=== PATIENT | male | born 1970 | race Two or more races ===

== ENCOUNTER 2025-01-05 17:06 | Inpatient (IN) | payer OTHER, MEDICAID, MEDICARE, SELFPAY ==
[2025-01-05 17:38] VITALS: BP 132/81; PULSE 130; RESP 18; TEMP 36.6; O2SAT 95
--- NOTE | 2025-01-05 17:47 | EKG_ITS ---
[facility] Test Date: 2025-01-05 Pat Name: BRANDON VERONICA Department: Room: - Gender: Male L Tacker: : 1970 Requested By: Brooklynn Ballard ([facility]) [place] Order Number: [id number] Reading MD: Brooklynn Ballard ([facility]) Joselito Measurements Intervals [place] Rate: 138 P: 48 MT: 133 QRS: 4 QRSD: 89 T: 58 QT: 290 QTc: 440 Interpretive Statements SINUS TACHYCARDIA ABNORMAL RHYTHM ECG Compared to ECG 08/26/2020 11:58:51 Sinus rhythm no longer present /store/S0/[id number].pdf
--- NOTE | 2025-01-05 17:48 | PD.EDRME ---
Rapid Medical Screening Exam RME Arrival date/time: 01/05/25 17:06 This is a 54-year-old male who presents emergency department with complaints of generalized abdominal pain, nausea vomiting I have greeted and performed a focused initial assessment of this patient. Initial appropriate labs ordered at this time. A comprehensive ED assessment and evaluation of the patient and analysis of all test and completion of medical decision making process will be conducted by additional ED provider. Chief Complaint: GI Bleed Time Seen by Provider: 01/05/25 17:31 Vital signs: Vital Signs Temperature 98 F 01/05/25 17:38 Pulse Rate 130 H 01/05/25 17:38 Respiratory Rate 18 01/05/25 17:38 Blood Pressure 132/81 H 01/05/25 17:38 Pulse Oximetry (%) 95 01/05/25 17:38 Oxygen Delivery Method Room Air 01/05/25 17:38
[2025-01-05 18:27] LABS: Basophils % (Auto) 0 % (0-2.5); Eosinophils % (Auto) 0 % (0-10); Hematocrit 44.2 % (41.0-53.0); Immature Granulocytes % (Auto) 1 % (0-0); Immature Granulocytes Auto 0.09 Thou/mm3 (0.00-0.00); Lymphocytes # (Auto) 1.8 Thou/mm3 (1.0-4.8); Lymphocytes % (Auto) 11 % (10-50); Mean Corpuscular HGB Conc 33.9 g/dl (31.0-37.0); Mean Corpuscular Hemoglobin 29.8 pg (25.0-35.0); Mean Corpuscular Volume 88 fL (80-100); Monocytes # (Auto) 1.5 Thou/mm3 (0.0-0.8); Monocytes % (Auto) 9 % (0-12); Neutrophils # (Auto) 13.5 Thou/mm3 (1.8-7.7); Neutrophils % (Auto) 80 % (37-80); Nucleated Red Blood Cell % 0 /100 WBC (0); Platelet Count 424 Thou/mm3 (140-440); RDW Standard Deviation 38.5 fL (35.1-43.9); Red Blood Count 5.03 Miln/mm3 (4.50-5.90); White Blood Count 16.9 Thou/mm3 (3.8-10.6)
[2025-01-05 18:45] LABS: Collection Type, Urine Clean Catch
[2025-01-05 18:53] LABS: INR 1.2 (0.9-1.3); Partial Thromboplastin Time 31.1 Seconds (22.0-36.0); Prothrombin Time 13.2 Seconds (9.0-12.2)
[2025-01-05 18:55] LABS: Alanine Aminotransferase 11 U/L (10-49); Albumin, Serum 4.8 gm/dL (3.5-5.0); Albumin/Globulin Ratio 1.4 (1.2-2.2); Alkaline Phosphatase 149 U/L (46-116); Anion Gap 16 (7-16); Aspartate Amino Transferase 18 U/L (0-34); BUN/Creatinine Ratio 31 Ratio (12-20); Bilirubin,Total 0.5 mg/dL (0.3-1.2); Blood Urea Nitrogen 22 mg/dL (9-23); Calcium 9.8 mg/dL (8.3-10.6); Calcium (Corrected) 9.8 mg/dL (8.5-10.1); Carbon Dioxide 25.5 mMol/L (20.0-31.0); Chloride 97 mMol/L (98-107); Creatinine (Component) 0.7 mg/dL (0.6-1.3); Globulin 3.4 gm/dL (2.3-3.5); Glucose 127 mg/dL (74-106); Lipase 27 U/L (12-53); Osmolality,Calculated 280 (275-295); Potassium 3.8 mMol/L (3.4-5.1); Sodium 138 mMol/L (136-145); Total Protein 8.2 gm/dL (5.7-8.2); Troponin I < 0.020 ng/mL (0.0-0.045); eGFR > 60 See Note
[2025-01-05 18:57] LABS: Bilirubin,Urine 1+ (Negative); Blood,Urine 2+ (Negative); Clarity,Urine Clear (Clear/Hazy); Color,Urine Yellow (Lt Yel-Yel); Glucose, Urine Negative (Negative); Hyaline Casts,Urine < 1 /hpf (0-1); Ketones,Urine 4+ (Negative); Leukocyte Esterase,Urine Negative (Negative); Nitrite,Urine Negative (Negative); Protein,Urine 2+ (Neg - Trace); RBC,Urine 13 /hpf (0-3); Squamous Epithelial Cell,Urine < 1 /hpf (0-5); WBC,Urine 4 /hpf (0-5)
[2025-01-05 20:01] VITALS: BP 125/90; PULSE 130; RESP 19; TEMP 36.6; O2SAT 97
--- NOTE | 2025-01-05 20:27 | XR_ITS ---
Examination: CT abdomen with intravenous contrast CT pelvis with intravenous contrast 2-D coronal reconstructions 2-D sagittal reconstructions Date and time of exam:January 05, 2025 2113 hrs. Indications: Generalized abdominal pain today. CTDI: vol (mGy) 8.25 DLP: (mGycm) 510 Technique: Multiple axial sections of the abdomen and pelvis have been obtained. 64 slice high-resolution scanner used. 3 mm axial sections have been obtained, post intravenous injection 60 cc [id number] 2-D sagittal, coronal reconstructions obtained. Low dose protocols were performed. One or more of the following dose reduction techniques were used; automated exposure control, adjustment of the mA and/or KV according to patient size, use of iterative reconstruction technique. Findings: No focal liver or splenic lesions Thickening of the mucosa in the gastric antrum, mild with edema in the duodenal bulb Spleen is not enlarged Absent gallbladder No pancreatic or adrenal mass 4 mm lower pole nonobstructing right renal calculus Normal appendix 4 mm fat-containing umbilical hernia Colonic diverticulosis no diverticulitis No prostatomegaly Contracted urinary bladder Transpedicular lumbar fusion L5-S1 Impression: Findings most consistent with antral gastritis and active peptic disease of the duodenal bulb Recommend upper GI series follow-up 4 mm lower pole nonobstructing right renal calculus
--- NOTE | 2025-01-05 20:29 | EDNOTE_ITS ---
ED GI Bleed E/[facility] General Chief complaint: GI Bleed Stated complaint: NAUSEA AND VOMITTING; COFFEE GRD EMESIS Time Seen by Provider: 01/05/25 17:31 Arrival date/time: 01/05/25 17:06 E / HPI E / [facility] Narrative: 54-year-old male patient came in for evaluation regarding vomiting. Patient has been vomiting since yesterday according to the family and patient was coffee ground in color. Also complaining of right lower quadrant abdominal pain described as dull ache severity moderate. Denies any fever denies any diarrhea denies any constipation denies any other complaints no medications taken prior to arrival. Patient is taking a lot of [place] and muscle relaxant for chronic back pain and spasm. History of cerebral palsy. Related Data Previous Rx's ?Medication ?Instructions ?Recorded hydrocodone 10 mg-acetaminophen 1 tab PO TID #10 tabs 10/23/18 325 mg tablet ([place]) lorazepam 1 mg tablet (Ativan) 1 mg PO BID PRN anxiety #10 tabs 07/28/22 lorazepam 1 mg tablet (Ativan) 1 mg PO BID PRN anxiety #4 tabs 11/30/22 Allergies Allergy/AdvReac Type Severity Reaction Status Date / Time morphine Allergy Verified 07/28/22 00:22 Review of Systems Review of Systems Narrative Review of Systems: Review of system reviewed and within normal limits except mentioned in HPI ED Exam Narrative Physical exam: VITAL SIGNS: Reviewed. GENERAL APPEARANCE: Alert and interactive, follows commands, no acute distress, HEAD AND FACE: Non-traumatic. ENT: PERRL, pink conjunctivitis, eyelid no trauma, Mucous membrane moist. NECK: Supple, nontender, no nuchal rigidity. CHEST: No tenderness, no crepitus, no paradoxical movement, no retractions. LUNGS: Clear, well ventilated, symmetric, no rales, no wheezing, no ronchi, no stridor, good breath sounds bilaterally. HEART: Regular rate, regular rhythm, no murmur, no gallops. ABDOMEN: Soft, positive bowel sounds, nondistended, no guarding, nontender, no rebound, no masses, RECTAL: Deferred. GENITAL: Deferred. NEUROLOGICAL: Gross motor function intact sensory function intact, Appropriate for age. MUSCULOSKELETAL: low back nontender, full range of motion. EXTREMITIES: Nontender, full range of motion. SKIN: Color pink, dry, no rash, no lacerations, no abrasions, no contusions. LYMPHATICS: Deferred. Course Quality Measures none Orders Category Date Time Status COVID-19 Screening Questionnaire NOW Care 01/05/25 22:[address] Screening NOW Care 01/05/25 20:27 Active Decision to Admit X1 Care 01/05/25 22:34 Active EKG (ED ONLY) *Do not use* NOW Care 01/05/25 17:47 Completed Insert IV NOW Care 01/05/25 17:47 Active NPO NOW Care 01/05/25 22:35 Active NPO STAT Care 01/05/25 17:47 Active Occult Blood,Stool (Nursing) NOW Care 01/05/25 17:47 Active Occult blood,Gastric (Nursing) NEEDED Care 01/05/25 22:31 Active Consult to Gastroenterology Stat Cons 01/05/25 22:32 Ordered Diet NPO (NOW) Diet 01/05/25 22:[address] abdomen pelvis w con Stat Exams 01/05/25 20:27 Completed EKG (ED Only) Stat Exams 01/05/25 17:47 Draft CBC Stat Lab 01/05/25 18:10 Completed Comprehensive Metabolic Panel Stat Lab 01/05/25 18:10 Completed Lipase Stat Lab 01/05/25 18:10 Completed Magnesium Stat Lab 01/05/25 18:10 Completed Partial Thromboplastin Time Stat Lab 01/05/25 18:10 Completed Prothrombin Time with INR Stat Lab 01/05/25 18:10 Completed Troponin I Stat Lab 01/05/25 18:10 Completed Type and Screen Stat Lab 01/05/25 18:10 Completed Urinalysis Stat Lab 01/05/25 18:34 Completed Ondansetron Inj [Zofran Inj] Med 01/05/25 20:27 Discontinued 4 mg IV X1 ONE Pantoprazole Inj [Protonix Inj] Med 01/05/25 20:27 Discontinued 80 mg IV X1 ONE Ringers Lactated 1000 ml [Lactated Ringers] 1,000 ml Med 01/05/25 20:29 Discontinued IV 999 mls/hr Vital Signs Vital signs: Vital Signs Temperature 98 F 01/05/25 17:38 Pulse Rate 130 H 01/05/25 17:38 Respiratory Rate 18 01/05/25 17:38 Blood Pressure 132/81 H 01/05/25 17:38 Pulse Oximetry (%) 95 01/05/25 17:38 Oxygen Delivery Method Room Air 01/05/25 17:38 GI Bleed [facility] Narrative [facility] Narrative:: 54-year-old male patient came in for evaluation regarding vomiting. Patient has been vomiting since yesterday according to the family and patient was coffee ground in color. Also complaining of right lower quadrant abdominal pain described as dull ache severity moderate. Denies any fever denies any diarrhea denies any constipation denies any other complaints no medications taken prior to arrival. Patient is taking a lot of [place] and muscle relaxant for chronic back pain and spasm. History of cerebral palsy. Patient's workup today all came back unremarkable hemoglobin is normal except for a WBC count of 16.9. Urinalysis no UTI. EKG showed sinus tachycardia, ventricular rate of 130 bpm, no ST segment elevation depression noted. CT scan of the abdomen pelvis showed Findings most consistent with antral gastritis and active peptic disease of the duodenal bulb Recommend upper GI series follow-up 4 mm lower pole nonobstructing right renal calculus Patient received IV fluids, IV Protonix, and IV Zofran.. Plan of care discussed with the patient and family. And agrees to be admitted. Gastric occult blood tested positive fecal occult blood tested positive for I spoke with Dr. Bey GI specialist on-call, who told me to keep the patient n.p.o. for possible endoscopy in the morning. Spoke with hospitalist who admitted the patient. Patient data External records reviewed:: None Clinical information provided by:: patient Social determinants that could affect healthcare access:: none Patient has the following chronic illnesses:: Hypertension, cerebral palsy How is presenting disease/condition affected by chronic disease/condition?: uneffected by Evaluation data The following diagnostics were reviewed and interpreted by me:: lab results, radiology exam(s) and EKG tracing(s) Lab and/or radiology exams considered but not ordered:: None Interpretation Summary: See results in MDM Medications / Prescriptions Medications or Prescriptions considered but not ordered:: None Medication administrations:: Medication Administration History Discontinued Medications Lactated Ringer's (Lactated Ringers) 1,000 mls @ 999 mls/hr IV .Q1H1M ONE Stop: 01/05/25 21:29 Last Admin: 01/05/25 20:47 Dose: 999 mls/hr Documented By: EF Ondansetron HCl (Ondansetron Inj 2 Mg/Ml Inj 2 Ml) 4 mg IV X1 ONE; Protocol Stop: 01/05/25 20:28 Last Admin: 01/05/25 20:46 Dose: 4 mg Documented By: EF Pantoprazole Sodium (Pantoprazole Inj 40 Mg Vial) 80 mg IV X1 ONE Stop: 01/05/25 20:28 Last Admin: 01/05/25 20:46 Dose: 80 mg Documented By: EF IV Protonix, Zofran and IV fluids for hydration Consultations Consultation(s) initiated? (list below): Yes Consultation #1 (Physician, Specialty, Details): Dr Bey, GI specialist on-call, thank you Dr. Diagnosis GI bleed differential diagnosis: Rubi-Forbes syndrome, Upper gastrointestinal hemorrhage and Lower gastrointestinal hemorrhage Most likely diagnosis given after review of the tests above:: Upper GI bleed Admission Indicated Admission indicated?: indicated Admission Request Was there a request for admission?: Yes Admission Attestation Admission request attestation: Discussed case with [Dr Bennett] from Hospitalist service regarding admission. Discussed patients ED course, exam findings, labs, and radiology results. The Hospitalist [agrees] to accept the patient for admission. Disposition Plan Disposition Plan: Admit Discharge Plan Prescriptions/Referrals Prescriptions/Med Rec: No Action hydrocodone-acetaminophen [[place]] 10-325 mg tablet 1 tab PO TID MDD 1 tab Qty: 10 0RF lorazepam [Ativan] 1 mg tablet 1 mg PO BID PRN (Reason: anxiety) Qty: 10 0RF lorazepam [Ativan] 1 mg tablet 1 mg PO BID PRN (Reason: anxiety) Qty: 4 0RF Referrals: Madie Odell MD [Primary Care Provider] - In 1 week Problem List Clinical Impression: Upper gastrointestinal hemorrhage Patient/Caregiver Discharge Instructions Print Language: Swedish
[2025-01-05] MEDS: ONDANSETRON INJ 2 MG/ML INJ 2 ML 4 MG IV (20:46)
[2025-01-05] MEDS: PANTOPRAZOLE INJ 40 MG VIAL 80 MG IV (20:46)
[2025-01-05] MEDS: RINGERS LACTATED 1000 ML 1,000 ML 999 ML IV ×2 (20:47→23:02)
--- NOTE | 2025-01-05 22:48 | PD.EVENT ---
Documentation for date of: 01/05/25 Event Note Event Note: A 54-year-old male presented to the ER with the chief complaint of vomiting. The patient began experiencing multiple episodes of vomiting on Thursday, described by the family as resembling coffee grounds. Vomiting was intermittent but recurrent throughout the day and involved a large volume. He reported associated right lower quadrant abdominal discomfort described as a dull ache of moderate severity, which has since resolved. Patient also reported feeling dehydrated. He denied fever, black stools, chest pain, shortness of breath, cough, or other systemic symptoms. This is his first episode of this nature. The patient has a history of HTN, hyperlipidemia, panic disorder, and cerebral palsy. Surgical history includes a prior back procedure. Current medications include [place], a muscle relaxant, two antihypertensives, a cholesterol-lowering agent, and medication for panic attacks. He denies smoking, alcohol, or recreational drug use. He uses a walker for ambulation due to chronic back issues. In the ER, vital signs were: temp 98.0?F, HR 130 bpm, RR 18, BP 132/81 mmHg. Labs revealed WBC 16.9, Hb 15, Plt 424, Na 138, K 3.8, BUN 22, Cr 0.7, glucose 127. CT abdomen showed findings consistent with antral gastritis and active peptic disease in the duodenal bulb. Gastric and fecal occult blood tests were positive. GI was consulted. The patient is NPO and scheduled for endoscopy tomorrow. Patient is going to be admitted for further management. #Upper GI Bleed (likely secondary to peptic ulcer disease) Assessment: Hematemesis with coffee ground emesis, positive gastric and fecal occult blood tests, tachycardia (HR 130), leukocytosis (WBC 16.9), CT showing antral gastritis and duodenal bulb peptic disease Plan: - NPO - IV fluids - Initiate IV PPI - Monitor hemoglobin Q6H, next one at midnight - Hold anticoagulants - GI consult already placed; proceed with scheduled EGD - Monitor for signs of hemodynamic instability (frequent vitals, I/Os) - Transfuse PRBCs if Hb <7 or symptomatic anemia #Tachycardia Assessment: Sinus tachycardia (HR 130) likely secondary to volume depletion from upper GI bleed, EKG: Sinus tachycardia Plan: - Monitor vitals q4h - Continue IV fluids, reassess for response - Monitor CBC #Hypertension Assessment: Known history, currently normotensive; continue home regimen if not contraindicated Plan: - Resume home antihypertensives if tolerating PO and hemodynamically stable - Monitor BP daily #Panic Disorder Assessment: History of panic disorder, no acute symptoms reported Plan: - Continue home medications - Monitor for acute anxiety or withdrawal symptoms during hospitalization
[2025-01-05 23:04] VITALS: BP 127/86; PULSE 131; RESP 19; TEMP 37.1; O2SAT 98
--- NOTE | 2025-01-05 23:37 | ESHP_ITS ---
Documentation for date of: 01/05/25 HPI History of Present Illness Chief complaint: Coffee-ground emesis History of present illness: The patient is a 54-year-old male with a previous medical history of hypertension, hyperlipidemia, panic disorder, cerebral palsy who was brought to the ED/06/2025 due to coffee-ground emesis that started on 01/04/2025. He reported that he had more than 10 episodes of emesis, was not able to keep the food down. He also reported feeling dizzy, weak, epigastric pain. He denies history of PUD, previous episodes coffee-ground emesis, bloody bowel movements, fever, chills. He reports burning during urination sometimes. ED course: Blood pressure 132/81, heart rate 130, saturating well on room air, afebrile. Labs showed WBC count 16.9, hemoglobin 15, platelet count 424, INR 1.2, sodium 138, potassium 3.8, EGFR more than 60, BUN 22, creatinine 0.7, glucose 127, AST 18, ALT 11, alkaline phosphatase 149, lipase 27. UA showed 2+ protein, ketones 4+, blood 2+, bilirubin 1+, RBCs 13, negative bacteria, WBC 4. Abdomen pelvis CT was consistent with antral gastritis and active peptic disease of the duodenal bulb. 4 mm nonobstructing renal calculus. Patient received pantoprazole, 2 L of fluids, ondansetron. GI specialist Dr. Bey was consulted, will do EGD. Patient is going to be admitted for upper GI bleeding treatment and management. Social history: Independent in ADLs, denies smoking, drinking alcohol. Surgical history: Back surgery Allergies: Denies Medications buspirone 10 mg twice daily, lorazepam 0.5 mg as needed, atorvastatin, lisinopril, fish open med rec is pending. Review of Systems Review of Systems Systems Reviewed: All systems reviewed, normal except as documented Exam Vital Signs Temp Pulse Resp BP Pulse Ox O2 Del Method 98.7 F 131 H 19 127/86 H 98 Room Air 01/05/25 23:04 01/05/25 23:04 01/05/25 23:04 01/05/25 23:04 01/05/25 23:04 01/05/25 23:04 Narrative Exam Physical Exam General: Awake and in no acute distress. Conversational and non-toxic appearing. Speech mildly disarthric. HEENT: Normocephalic, atraumatic, mucous membranes moist. Heart: Regular rate and rhythm, no murmurs. Lungs: Clear to auscultation with no wheezing or crackles. Abdomen: Soft, nondistended, nontender, positive bowel sounds. ?No guarding or rebound tenderness. Neurologic: Alert and oriented x3, no gross neurological deficit, and patient able to move all 4 extremities. Extremities: No edema. Contracture of the right hand, varus deformity of ankle. Skin: No rash or ecchymoses. Results: Labs 01/06/25 00:32 01/05/25 18:10 Labs: Short CBC 01/05/25 Range/Units 18:10 WBC 16.9 H (3.8-10.6) Thou/mm3 Hgb 15.0 (13.5-16.0) g/dL Hct 44.2 (41.0-53.0) % Plt Count 424 (140-440) Thou/mm3 BMP 01/05/25 18:10 Sodium 138 Potassium 3.8 Chloride 97 L Carbon Dioxide 25.5 BUN 22 Creatinine 0.7 Glucose 127 H Calcium 9.8 Cardiac Enzymes 01/05/25 Range/Units 18:10 Troponin I < 0.020 (0.0-0.045) ng/mL Liver Function 01/05/25 Range/Units 18:10 Total Bilirubin 0.5 (0.3-1.2) mg/dL AST 18 (0-34) U/L ALT 11 (10-49) U/L Alkaline Phosphatase 149 H (46-116) U/L Albumin 4.8 (3.5-5.0) gm/dL Urine 01/05/25 Range/Units 18:34 Urine Color Yellow (Lt Yel-Yel) Urine Clarity Clear (Clear/Hazy) Urine pH 6.0 (5.0-7.0) Ur Specific [place] 1.030 (1.001-1.035) Urine Protein 2+ A (Neg - Trace) Urine Glucose (UA) Negative (Negative) Quality Measures Quality Measures VTE prophylaxis Medications Home Medications and Allergies Allergies Allergy/AdvReac Type Severity Reaction Status Date / Time morphine Allergy Verified 07/28/22 00:22 Visit Medications Sodium Chloride (Ns) 1,000 mls @ 100 mls/hr IV .Q10H KENDAL Stop: 02/04/25 22:44 Pantoprazole Sodium (Protonix/Ns 80mg Iv Premix) 80 mg in 100 mls @ 10 mls/hr IV Q10H KENDAL Stop: 01/08/25 20:45 Lactated Ringer's (Lactated Ringers) 1,000 mls @ 999 mls/hr IV .Q1H1M ONE Stop: 01/05/25 23:54 Last Admin: 01/05/25 23:02 Dose: 999 mls/hr Discontinued Medications Lactated Ringer's (Lactated Ringers) 1,000 mls @ 999 mls/hr IV .Q1H1M ONE Stop: 01/05/25 21:29 Last Infusion: 01/05/25 21:48 Dose: Infused Ondansetron HCl (Ondansetron Inj 2 Mg/Ml Inj 2 Ml) 4 mg IV X1 ONE; Protocol Stop: 01/05/25 20:28 Last Admin: 01/05/25 20:46 Dose: 4 mg Pantoprazole Sodium (Pantoprazole Inj 40 Mg Vial) 80 mg IV X1 ONE Stop: 01/05/25 20:28 Last Admin: 01/05/25 20:46 Dose: 80 mg Assessment & Plan Plan The patient is a 54-year-old male with a previous medical history of hypertension, hyperlipidemia, panic disorder, cerebral palsy who was brought to the ED/06/2025 due to coffee-ground emesis that started on 01/04/2025. He reported that he had more than 10 episodes of emesis, was not able to keep the food down. Patient was admitted for upper GI bleeding treatment and management. #Upper GI blood Most likely due to PUD. 01/05/25 Hbg 15.0 Plan: - NPO - Pantoprazole drip - GI specialist Dr. Bey consulted, will perform EGD - Repeat H&H - Daily CBC - Tranfuse if Hbg <7 #History of anxiety Plan: - Consider resuming home buspirone - Consider lorazepam as needed - Med rec is pending #Hypertension #Hyperlipidemia Plan: - Home BP medication on hold for now due to normal BP - Med rec is pending #Cerebral palsy Stable, chronic condition. Health maintenance: FEN: NPO DVT prophylaxis: SCDs GI prophylaxis: pantoprazole drip Dispo: Telemetry CODE STATUS: Full code Plan of care discussed with attending Dr. Bennett. Brionna Vigil MD, PGY 1. Attending Provider Attestation/Addendum Pt was evaluated and plan formulated together with the housestaff team. I have reviewed the residents note above and agree with most of its content. Please refer to the residents note for additional details.
[2025-01-06] VITALS (15 sets, daily range): BP systolic 112–148; BP diastolic 69–104; PULSE 99–135; RESP 17–34; TEMP 36.2–37.8; O2SAT 94–99; BMI 26.2
[2025-01-06 00:41] LABS: Hematocrit 38.3 % (41.0-53.0)
[2025-01-06] MEDS: HYDROcodone/APAP 5/325 TABLET 1 TAB PO ×4 (01:37→22:28)
[2025-01-06 05:54] LABS: Basophils % (Auto) 0 % (0-2.5); Eosinophils % (Auto) 0 % (0-10); Hemoglobin 11.9 g/dL (13.5-16.0); Immature Granulocytes % (Auto) 0 % (0-0); Immature Granulocytes Auto 0.05 Thou/mm3 (0.00-0.00); Lymphocytes # (Auto) 2.4 Thou/mm3 (1.0-4.8); Lymphocytes % (Auto) 19 % (10-50); Mean Corpuscular Hemoglobin 30.4 pg (25.0-35.0); Mean Corpuscular Volume 89 fL (80-100); Monocytes # (Auto) 1.5 Thou/mm3 (0.0-0.8); Monocytes % (Auto) 11 % (0-12); Neutrophils # (Auto) 8.9 Thou/mm3 (1.8-7.7); Neutrophils % (Auto) 69 % (37-80); Nucleated Red Blood Cell % 0 /100 WBC (0); Platelet Count 300 Thou/mm3 (140-440); RDW Standard Deviation 38.7 fL (35.1-43.9); Red Blood Count 3.92 Miln/mm3 (4.50-5.90); White Blood Count 12.9 Thou/mm3 (3.8-10.6)
[2025-01-06 06:14] LABS: Anion Gap 9 (7-16); BUN/Creatinine Ratio 32 Ratio (12-20); Blood Urea Nitrogen 19 mg/dL (9-23); Calcium 8.5 mg/dL (8.3-10.6); Chloride 102 mMol/L (98-107); Creatinine (Component) 0.6 mg/dL (0.6-1.3); Estimated Creatinine Clearance 124.1 mL/min (>60); Glucose 106 mg/dL (74-106); Osmolality,Calculated 277 (275-295); Potassium 3.5 mMol/L (3.4-5.1); Sodium 138 mMol/L (136-145); eGFR > 60 See Note
[2025-01-06] MEDS: PANTOPRAZOLE/NS 80MG IV PREMIX 80 MG/100 ML BAG 10 MG IV ×3 (08:36→20:19)
[2025-01-06] MEDS: POTASSIUM CHLORIDE 10% 20 MEQ/15 ML UDC 40 MEQ PO (08:36)
[2025-01-06] MEDS: BusPIRone HCL 5 MG TABLET 10 MG PO ×2 (10:46→20:19)
[2025-01-06] MEDS: SODIUM CHLORIDE 0.9% 1000 ML 1,000 ML 100 ML IV ×3 (10:47→21:22)
--- NOTE | 2025-01-06 13:55 | ESPR_ITS ---
<Statement entered by Caren Chapman MD - 01/13/25 08:54> I reviewed above note and agree with findings and plans. I have also personally examined the patient with medicine team and went over assessment and plan with medical team including international accounting manager and resident physician. Documentation for date of: 01/06/25 Senior resident attestation: Patient was seen at the bedside, admitted for upper GI bleed, past medical history pertinent for GERD, pending gastroenterology Dr. Bey's recommendations, possible endoscopy. CBC showed hemoglobin 15 on admission, continue to monitor hemoglobin, started on Protonix drip. N.p.o. for now. Patient evaluated and examined at the bedside, plan of care discussed with rest of the team including my attending physician, except as noted. Quresh PGY2 Subjective Subjective Interval history: No overnight events for patient. Patient denied any history of previous upper GI bleeding. Patient denied history of for H. pylori. Denied history of peptic ulcer disease. Denied history of varices. Denied alcohol use disorder, alcohol use. Patient denied melena in stool. Patient denied hematochezia and stool. This is her first episode of emesis that appeared coffee-ground. Patient does have a history of GERD and does take PPI at home but is unsure which one. Patient remains NPO. Exam Vital Signs Temp Pulse Resp BP Pulse Ox O2 Del Method 97.2 F 118 H 19 123/81 94 L Room Air 01/06/25 12:00 01/06/25 12:01/06/25 12:01/06/25 12:00 01/06/25 12:01/06/25 12:00 Narrative Exam General Appearance: Alert & Oriented X3, well-nourished male who is lying in bed in no acute distress HEENT: Skull symmetrical and atraumatic. Conjunctivae pin and moist. Pupils equal, round, reactive to light and accommodation (PERRL). External ear without lesion or discharge. Straight, nares patient, mucosa pink, no discharge. No thyroid nodule appreciated. No cervical lymphadenopathy. Cardio: Normal Rate and Rhythm with S1 and S2 heart sounds. No murmurs or extra heart sounds auscultated. No bruits on carotid auscultation. No peripheral edema or cyanosis. Lungs: Symmetric with good expansion. Chest and back non-tender. Breath sounds vesicular without crackles, wheezing or rhonchi Abdomen: Non-tender, Non-distended, Normal Reactive Bowel Sounds. Negative Moreira sign. Neuro: Alert, cooperative, oriented to person, place, and time. Speech clear. CN grossly intact. Upper motor strength 5/5 and Lower motor strength 5/5. Sensation intact. Objective Labs 01/08/25 05:16 01/08/25 05:16 Labs: Laboratory Results - last 24 hr 01/05/25 01/05/25 01/06/25 18:10 18:34 00:32 WBC 16.9 H RBC 5.03 Hgb 15.0 13.0 L D Hct 44.2 38.3 L MCV 88 MCH 29.8 MCHC 33.9 RDW Std Deviation 38.5 Plt Count 424 Neut % (Auto) 80 Lymph % (Auto) 11 [place] % (Auto) 9 Eos % (Auto) 0 Baso % (Auto) 0 Neut # (Auto) 13.5 H Lymph # (Auto) 1.8 [place] # (Auto) 1.5 H Eos # (Auto) 0.0 Baso # (Auto) 0.0 Immature Gran # (Auto) 0.09 H Absolute Nucleated RBC 0.00 Immature Gran % 1 H Nucleated RBC % 0 PT 13.2 H INR 1.2 APTT 31.1 Sodium 138 Potassium 3.8 Chloride 97 L Carbon Dioxide 25.5 Anion Gap 16 BUN 22 Creatinine 0.7 Estim Creat Clear Calc Not Performed. eGFR > 60 BUN/Creatinine Ratio 31 H Glucose 127 H Calculated Osmolality 280 Calcium 9.8 Corrected Calcium 9.8 Magnesium 2.0 Total Bilirubin 0.5 AST 18 ALT 11 Alkaline Phosphatase 149 H Troponin I < 0.020 Total Protein 8.2 Albumin 4.8 Globulin 3.4 Albumin/Globulin Ratio 1.4 Lipase 27 Ur Collection Type Clean Catch Urine Color Yellow Urine Clarity Clear Urine pH 6.0 Ur Specific [place] 1.030 Urine Protein 2+ A Urine Glucose (UA) Negative Urine Ketones 4+ A Urine Blood 2+ A Urine Nitrite Negative Urine Bilirubin 1+ A Urine Urobilinogen (Auto) 2.0 Ur Leukocyte Esterase Negative Urine RBC 13 H Urine WBC 4 Ur Squamous Epith Cells < 1 Urine Bacteria None Hyaline Casts < 1 Blood Type O Positive Antibody Screen NEGATIVE Blood Bank Wristband ID Yes 01/06/25 05:15 WBC 12.9 H RBC 3.92 L Hgb 11.9 L Hct 35.0 L MCV 89 MCH 30.4 MCHC 34.0 RDW Std Deviation 38.7 Plt Count 300 D Neut % (Auto) 69 Lymph % (Auto) 19 [place] % (Auto) 11 Eos % (Auto) 0 Baso % (Auto) 0 Neut # (Auto) 8.9 H Lymph # (Auto) 2.4 [place] # (Auto) 1.5 H Eos # (Auto) 0.0 Baso # (Auto) 0.0 Immature Gran # (Auto) 0.05 H Absolute Nucleated RBC 0.00 Immature Gran % 0 Nucleated RBC % 0 PT INR APTT Sodium 138 Potassium 3.5 Chloride 102 Carbon Dioxide 27.0 Anion Gap 9 BUN 19 Creatinine 0.6 Estim Creat Clear Calc 124.1 eGFR > 60 BUN/Creatinine Ratio 32 H Glucose 106 Calculated Osmolality 277 Calcium 8.5 Corrected Calcium Magnesium Total Bilirubin AST ALT Alkaline Phosphatase Troponin I Total Protein Albumin Globulin Albumin/Globulin Ratio Lipase Ur Collection Type Urine Color Urine Clarity Urine pH Ur Specific [place] Urine Protein Urine Glucose (UA) Urine Ketones Urine Blood Urine Nitrite Urine Bilirubin Urine Urobilinogen (Auto) Ur Leukocyte Esterase Urine RBC Urine WBC Ur Squamous Epith Cells Urine Bacteria Hyaline Casts Blood Type Antibody Screen Blood Bank Wristband ID Quality Measures Quality Measures VTE prophylaxis Assessment & Plan Assessment Current Active Medications: Generic Name Dose Route Start Last Admin Trade Name Freq PRN Reason Stop Dose Admin Hydrocodone Bitart/Acetaminophen 1 tab 01/06/25 01:13 01/06/25 10:46 Hydrocodone/Apap 5/325 Tablet PO 01/11/25 01:12 1 tab Q6HR PRN Administration PAIN 1-6 (mild-mod Buspirone HCl 10 mg 01/06/25 10:00 01/06/25 10:46 Buspirone Hcl 5 Mg Tablet PO 02/05/25 09:59 10 mg BID KENDAL Administration Sodium Chloride 1,000 mls @ 100 mls/hr 01/05/25 22:45 01/06/25 10:47 Ns IV 02/04/25 22:44 100 mls/hr .Q10H KENDAL Administration Pantoprazole Sodium 80 mg in 100 mls @ 10 mls/hr 01/05/25 22:46 01/06/25 08:36 Protonix/Ns 80mg Iv Premix IV 01/08/25 20:45 10 mls/hr Q10H KENDAL Administration Plan The patient is a 54-year-old male with a previous medical history of hypertension, hyperlipidemia, panic disorder, cerebral palsy who was brought to the ED/06/2025 due to coffee-ground emesis that started on 01/04/2025. He reported that he had more than 10 episodes of emesis, was not able to keep the food down. Patient was admitted for upper GI bleeding treatment and management. #Upper GI blood #GERD Peptic ulcer disease given past medical history of GERD, patient takes Norc 10 as home medication which may be contributing to peptic ulcers if noted in EGD vs variceal less likely secondary to lower GI bleed as patient denied melena but can not be ruled out. 01/05/25 Hbg 15.0 Plan: - NPO - Pantoprazole drip - Tranfuse if Hbg <7 - GI specialist Dr. Bey consulted, will perform EGD #History of anxiety Plan: - Consider resuming home buspirone - Consider lorazepam as needed - Med rec is pending #Hypertension #Hyperlipidemia Plan: - Home BP medication on hold for now due to normal BP -Atorvastatin 10 mg HS -Lisinopril 2.5 mg Qday # Anxiety Per patient and brother at bedside, patient takes Buspirone 10 mg PO BID for anxiety. Plan -Resume Buspirone 10 mg PO BID -Sertraline 100 mg qday ? #Cerebral palsy Stable, chronic condition. - The patient's plan was discussed with attending Dr. Chapman and senior residents Dr. Bernadine Miranda MD PGY1 Internal Medicine
--- NOTE | 2025-01-06 15:43 | PC.SS ---
SS met with patient and sister at bedside. Patient is alert/oriented. Patient able to verify demographics. Patient has hx: Cerebral Palsy. He is independent with ADL's. Patient resides at home alone. He can perform his ADL's independently. He states he can cook, clean, hygiene. Patient has an [employer] worker but she comes in once every other week. Patient's family is very supportive and assists in his needs as often as they can. Family provides transportation assistance. Patient is ambulatory short distances. He uses a walker. No other DME. Patient is connected with [facility] for support. Patient makes all his own medical decisions. Discharge plan remains the same, to return home with same supportive services. Pharmacy: [facility] PCP: Dr. Odell and last appt.was yesterday. Alt medical decision maker is his sister, Alis, . Family will provide transportation upon discharge.
--- NOTE | 2025-01-06 17:29 | ESCONSULT_ITS ---
HPI Data of Consult Requesting Physician: Caren Chapman MD Primary Care Provider: Madie Odell MD Consult Narrative Reason for consult: Coffee-ground hematemesis History of present illness: 54 years old male presented to the emergency room brought in by the family for coffee-ground hematemesis Patient has been vomiting for quite some time Initial presenting hemoglobin hematocrit was 15.0 44.2 with subsequently went down to 13.7 and 38.3 and today it is 11.9 and 35.0 Patient is not taking any blood thinners although he takes lorazepam and hydrocodone APAP cc:: cc: Caren Chapman MD Review of Systems Review of Systems Systems Reviewed: All systems reviewed, normal except as documented Past Medical History Surgical History OTHER SURGICAL HX: Hypertension Hyperlipidemia Chronic constipation Anxiety neurosis with component of depression Bronchial asthma/COPD Meds Home Medications and Allergies Home Medications ?Medication ?Instructions ?Recorded ?Confirmed ?Type albuterol sulfate 90 mcg/actuation inhalation 01/06/25 History aerosol inhaler atorvastatin 10 mg tablet mg 01/06/25 History buspirone 10 mg tablet mg 01/06/25 History cyclobenzaprine 10 mg tablet mg 01/06/25 History docusate sodium 250 mg capsule mg PO 01/06/25 History fluticasone 100 mcg-salmeterol 50 inhalation 01/06/25 History mcg/dose blistr powdr for inhalation linaclotide 72 mcg capsule mcg 01/06/25 History (Linzess) lisinopril 2.5 mg tablet mg 01/06/25 History lorazepam 0.5 mg tablet mg 01/06/25 History meclizine 25 mg tablet mg 01/06/25 History meloxicam 15 mg tablet mg 01/06/25 History metoprolol succinate 25 mg mg PO 01/06/25 History tablet,extended release 24 hr omeprazole 20 mg capsule,delayed mg 01/06/25 History release pantoprazole 40 mg tablet,delayed mg PO 01/06/25 Hist ory release sennosides 8.6 mg tablet (Nilsa-emilee) mg 01/06/25 Histo ry sertraline 100 mg tablet mg 01/06/25 History trazodone 100 mg tablet mg 01/06/25 History Allergies Allergy/AdvReac Type Severity Reaction Status Date / Time morphine Allergy Verified 07/28/22 00:22 Exam Vital Signs Temp Pulse Resp BP Pulse Ox O2 Del Method 97.2 F 118 H 19 123/81 94 L Room Air 01/06/25 12:00 01/06/25 12:00 01/06/25 12:00 01/06/25 12:00 01/06/25 12:00 01/06/25 12:00 Constitutional Comments: Anxious patient Routine Respiratory Exam Comments: Normal to auscultation Routine Abdominal Exam Comments: Soft nontender Results Labs 01/06/25 05:15 01/06/25 05:15 Labs: Short CBC 01/05/25 01/06/25 01/06/25 Range/Units 18:10 00:32 05:15 WBC 16.9 H 12.9 H (3.8-10.6) Thou/mm3 Hgb 15.0 13.0 L D 11.9 L (13.5-16.0) g/dL Hct 44.2 38.3 L 35.0 L (41.0-53.0) % Plt Count 424 300 D (140-440) Thou/mm3 BMP 01/05/25 01/06/25 18:10 05:15 Sodium 138 138 Potassium 3.8 3.5 Chloride 97 L 102 Carbon Dioxide 25.5 27.0 BUN 22 19 Creatinine 0.7 0.6 Glucose 127 H 106 Calcium 9.8 8.5 Cardiac Enzymes 01/05/25 Range/Units 18:10 Troponin I < 0.020 (0.0-0.045) ng/mL Liver Function 01/05/25 Range/Units 18:10 Total Bilirubin 0.5 (0.3-1.2) mg/dL AST 18 (0-34) U/L ALT 11 (10-49) U/L Alkaline Phosphatase 149 H (46-116) U/L Albumin 4.8 (3.5-5.0) gm/dL Urine 01/05/25 Range/Units 18:34 Urine Color Yellow (Lt Yel-Yel) Urine Clarity Clear (Clear/Hazy) Urine pH 6.0 (5.0-7.0) Ur Specific [place] 1.030 (1.001-1.035) Urine Protein 2+ A (Neg - Trace) Urine Glucose (UA) Negative (Negative) Assessment and Plan Additional Assessment & Plan Additional Plan: # Coffee-ground hematemesis of uncertain etiology Plan Serial CBC IV Protonix consent obtained in the room with his history of present for fiberoptic esophagogastroduodenoscopy with possible therapeutic intervention possible biopsy under intravenous moderate sedation Other medical problems include Anxiety neurosis Depression Bronchial asthma/COPD Chronic constipation on Linzess Thank you very much for the opportunity to participate in the care of this patient
[2025-01-06] MEDS: ATORVASTATIN CALCIUM 10 MG TABLET PO (20:19)
[2025-01-06] MEDS: SUCRALFATE SUSP 1 GM/10 ML UDC PO (20:19)
[2025-01-06] MEDS: MG HYD/AL HYD/SIME (Maalox Reg) SUSP 30 ML UDC 15 ML PO (20:19)
[2025-01-07] VITALS (7 sets, daily range): BP systolic 123–136; BP diastolic 70–93; PULSE 90–115; RESP 17–19; TEMP 36.2–36.8; O2SAT 95–100; BMI 25.4
[2025-01-07] MEDS: HYDROcodone/APAP 5/325 TABLET 1 TAB PO ×3 (04:23→16:38)
[2025-01-07] MEDS: MG HYD/AL HYD/SIME (Maalox Reg) SUSP 30 ML UDC 15 ML PO ×4 (05:57→21:14)
[2025-01-07] MEDS: PANTOPRAZOLE/NS 80MG IV PREMIX 80 MG/100 ML BAG 10 MG IV ×2 (05:57→15:22)
[2025-01-07] MEDS: SUCRALFATE SUSP 1 GM/10 ML UDC PO ×4 (05:57→21:14)
[2025-01-07 06:04] LABS: Basophils % (Auto) 0 % (0-2.5); Eosinophils # (Auto) 0.1 Thou/mm3 (0.0-0.5); Eosinophils % (Auto) 1 % (0-10); Hematocrit 35.5 % (41.0-53.0); Hemoglobin 11.8 g/dL (13.5-16.0); Immature Granulocytes % (Auto) 0 % (0-0); Immature Granulocytes Auto 0.03 Thou/mm3 (0.00-0.00); Lymphocytes % (Auto) 23 % (10-50); Mean Corpuscular HGB Conc 33.2 g/dl (31.0-37.0); Mean Corpuscular Hemoglobin 30.4 pg (25.0-35.0); Mean Corpuscular Volume 92 fL (80-100); Monocytes % (Auto) 11 % (0-12); Neutrophils # (Auto) 5.6 Thou/mm3 (1.8-7.7); Neutrophils % (Auto) 64 % (37-80); Nucleated Red Blood Cell % 0 /100 WBC (0); Platelet Count 307 Thou/mm3 (140-440); Red Blood Count 3.88 Miln/mm3 (4.50-5.90); White Blood Count 8.7 Thou/mm3 (3.8-10.6)
[2025-01-07 06:35] LABS: Anion Gap 8 (7-16); BUN/Creatinine Ratio 20 Ratio (12-20); Blood Urea Nitrogen 12 mg/dL (9-23); Calcium 8.7 mg/dL (8.3-10.6); Carbon Dioxide 26.4 mMol/L (20.0-31.0); Chloride 107 mMol/L (98-107); Creatinine (Component) 0.6 mg/dL (0.6-1.3); Estimated Creatinine Clearance 124.1 mL/min (>60); Glucose 102 mg/dL (74-106); Magnesium 1.8 mg/dL (1.6-2.6); Osmolality,Calculated 280 (275-295); Phosphorous 2.9 mg/dL (2.4-5.1); Potassium 3.8 mMol/L (3.4-5.1); Sodium 141 mMol/L (136-145); eGFR > 60 See Note
[2025-01-07] MEDS: Lisinopril 2.5 MG TABLET PO (08:37)
[2025-01-07] MEDS: BusPIRone HCL 5 MG TABLET 10 MG PO ×2 (08:37→21:15)
[2025-01-07] MEDS: SODIUM CHLORIDE 0.9% 1000 ML 1,000 ML 100 ML IV ×2 (08:38→16:38)
--- NOTE | 2025-01-07 14:40 | ESPR_ITS ---
<Statement entered by Caren Chapman MD - 01/13/25 12:55> I reviewed above note and agree with findings and plans. I have also personally examined the patient with medicine team and went over assessment and plan with medical team including marketing pr intern and resident physician. Documentation for date of: 01/07/25 Subjective Subjective Interval history: No acute overnight events, leukocytosis was most likely reactive resolved, back to normal range. Hemoglobin is stable 11.9, CMP unremarkable. No acute overnight events. EGD was done which revealed esophageal oozing ulcers, per GI continue PPI drip, Carafate 4 times daily on Eliquis, walks. Patient started on clear liquid diet, will continue close monitor, plan is to switch to p.o. PPI. Anticipate discharge in next 24-hour. Exam Vital Signs Temp Pulse Resp BP Pulse Ox O2 Del Method O2 Flow Rate 97.1 F 101 H 19 125/76 97 Room Air 3 01/07/25 12:00 01/07/25 12:00 01/07/25 12:00 01/07/25 12:00 01/07/25 12:00 01/07/25 12:00 01/06/25 18:05 Narrative Exam General Appearance: Alert & Oriented X3, well-nourished male who is lying in bed in no acute distress HEENT: Skull symmetrical and atraumatic. Conjunctivae pin and moist. Pupils equal, round, reactive to light and accommodation (PERRL). External ear without lesion or discharge. Straight, nares patient, mucosa pink, no discharge. No thyroid nodule appreciated. No cervical lymphadenopathy. Cardio: Normal Rate and Rhythm with S1 and S2 heart sounds. No murmurs or extra heart sounds auscultated. No bruits on carotid auscultation. No peripheral edema or cyanosis. Lungs: Symmetric with good expansion. Chest and back non-tender. Breath sounds vesicular without crackles, wheezing or rhonchi Abdomen: Non-tender, Non-distended, Normal Reactive Bowel Sounds. Negative Moreira sign. Neuro: Alert, cooperative, oriented to person, place, and time. Speech clear. CN grossly intact. Upper motor strength 5/5 and Lower motor strength 5/5. Sensation intact. Objective Labs 01/07/25 04:36 01/07/25 04:36 Labs: Laboratory Results - last 24 hr 01/07/25 04:36 WBC 8.7 RBC 3.88 L Hgb 11.8 L Hct 35.5 L MCV 92 MCH 30.4 MCHC 33.2 RDW Std Deviation 40.0 Plt Count 307 Neut % (Auto) 64 Lymph % (Auto) 23 [place] % (Auto) 11 Eos % (Auto) 1 Baso % (Auto) 0 Neut # (Auto) 5.6 Lymph # (Auto) 2.0 [place] # (Auto) 1.0 H Eos # (Auto) 0.1 Baso # (Auto) 0.0 Immature Gran # (Auto) 0.03 H Absolute Nucleated RBC 0.00 Immature Gran % 0 Nucleated RBC % 0 Sodium 141 Potassium 3.8 Chloride 107 Carbon Dioxide 26.4 Anion Gap 8 BUN 12 Creatinine 0.6 Estim Creat Clear Calc 124.1 eGFR > 60 BUN/Creatinine Ratio 20 Glucose 102 Calculated Osmolality 280 Calcium 8.7 Phosphorus 2.9 Magnesium 1.8 Quality Measures Quality Measures VTE prophylaxis Assessment & Plan Assessment Current Active Medications: Generic Name Dose Route Start Last Admin Trade Name Freq PRN Reason Stop Dose Admin Hydrocodone Bitart/Acetaminophen 1 tab 01/06/25 01:13 01/07/25 10:47 Hydrocodone/Apap 5/325 Tablet PO 01/11/25 01:12 1 tab Q6HR PRN Administration PAIN 1-6 (mild-mod Al Hydrox/Mg Hydrox/Simethicone 15 ml 01/06/25 21:00 01/07/25 12:08 Mg Hyd/Al Hyd/[place] (Maalox Reg) Susp 30 Ml Udc PO 02/05/25 20:59 15 ml QID KENDAL Administration Atorvastatin Calcium 10 mg 01/06/25 21:00 01/06/25 20:19 Atorvastatin Calcium 10 Mg Tablet PO 02/05/25 20:59 10 mg HS KENDAL Administration Buspirone HCl 10 mg 01/06/25 10:00 01/07/25 08:37 Buspirone Hcl 5 Mg Tablet PO 02/05/25 09:59 10 mg BID KENDAL Administration Sodium Chloride 1,000 mls @ 100 mls/hr 01/05/25 22:45 01/07/25 08:38 Ns IV 02/04/25 22:44 100 mls/hr .Q10H KENDAL Administration Pantoprazole Sodium 80 mg in 100 mls @ 10 mls/hr 01/05/25 22:46 01/07/25 05:57 Protonix/Ns 80mg Iv Premix IV 01/08/25 20:45 10 mls/hr Q10H KENDAL Administration Lisinopril 2.5 mg 01/07/25 09:00 01/07/25 08:37 Lisinopril 2.5 Mg Tablet PO 02/06/25 08:59 2.5 mg QDAY KENDAL Administration Ondansetron HCl 4 mg 01/06/25 22:23 Ondansetron Inj 2 Mg/Ml Inj 2 Ml IV 02/05/25 22:22 Q6HR PRN NAUSEA OR VOMITING Protocol Sucralfate 1 gm 01/06/25 21:00 01/07/25 12:08 Sucralfate Susp 1 Gm/10 Ml Udc PO 02/05/25 20:59 1 gm QID KENDAL Administration Plan The patient is a 54-year-old male with a previous medical history of hypertension, hyperlipidemia, panic disorder, cerebral palsy who was brought to the ED/06/2025 due to coffee-ground emesis that started on 01/04/2025. He reported that he had more than 10 episodes of emesis, was not able to keep the food down. Patient was admitted for upper GI bleeding treatment and management. #Upper GI blood #GERD #Esophageal ulcers Peptic ulcer disease given past medical history of GERD, patient takes Norc 10 as home medication which may be contributing to peptic ulcers if noted in EGD vs variceal less likely secondary to lower GI bleed as patient denied melena but can not be ruled out. 01/05/25 Hbg 15.0 01/07/25 patient yesterday had EGD done which revealed esophageal oozing ulcers, Plan: - Clear liquid diet - Continue pantoprazole drip, plan to switch to p.o. PPI, will follow-up with Dr. Bey recommendations - Carafate 4 times daily - start Maalox - Tranfuse if Hbg <7 - GI specialist Dr. Bey consulted, #History of anxiety Plan: - Resumed home buspirone and lorazepam #Hypertension #Hyperlipidemia Plan: -Atorvastatin 10 mg HS -Lisinopril 2.5 mg Qday # Anxiety Per patient and brother at bedside, patient takes Buspirone 10 mg PO BID for anxiety. Plan -Resume Buspirone 10 mg PO BID -Sertraline 100 mg qday ? #Cerebral palsy Stable, chronic condition. Disposition: Telemetry DVT prophylaxis: SCDs GI prophylaxis: PPI Diet: Clear liquid Lines: PIV CODE STATUS:Full code Patient care was discussed with attending physician Dr. Adela Smith MD PGY-2
--- NOTE | 2025-01-07 17:24 | ESPR_ITS ---
Documentation for date of: 01/07/25 Subjective Subjective Interval history: Patient evaluated Hemoglobin hematocrit 11.8 and 35.5 Exam Vital Signs Temp Pulse Resp BP Pulse Ox O2 Del Method O2 Flow Rate 97.6 F 90 19 130/93 H 100 Room Air 3 01/07/25 16:00 01/07/25 16:00 01/07/25 16:00 01/07/25 16:00 01/07/25 16:00 01/07/25 16:00 01/06/25 18:05 Objective Labs 01/07/25 04:36 01/07/25 04:36 Labs: Laboratory Results - last 24 hr 01/07/25 04:36 WBC 8.7 RBC 3.88 L Hgb 11.8 L Hct 35.5 L MCV 92 MCH 30.4 MCHC 33.2 RDW Std Deviation 40.0 Plt Count 307 Neut % (Auto) 64 Lymph % (Auto) 23 [place] % (Auto) 11 Eos % (Auto) 1 Baso % (Auto) 0 Neut # (Auto) 5.6 Lymph # (Auto) 2.0 [place] # (Auto) 1.0 H Eos # (Auto) 0.1 Baso # (Auto) 0.0 Immature Gran # (Auto) 0.03 H Absolute Nucleated RBC 0.00 Immature Gran % 0 Nucleated RBC % 0 Sodium 141 Potassium 3.8 Chloride 107 Carbon Dioxide 26.4 Anion Gap 8 BUN 12 Creatinine 0.6 Estim Creat Clear Calc 124.1 eGFR > 60 BUN/Creatinine Ratio 20 Glucose 102 Calculated Osmolality 280 Calcium 8.7 Phosphorus 2.9 Magnesium 1.8 Impressions Impression: Esophageal ulcers Gastric ulcers Continue current Assessment & Plan A&P Narrative # Coffee-ground hematemesis of uncertain etiology Plan Serial CBC IV Protonix consent obtained in the room with his history of present for fiberoptic esophagogastroduodenoscopy with possible therapeutic intervention possible biopsy under intravenous moderate sedation Other medical problems include Anxiety neurosis Depression Bronchial asthma/COPD Chronic constipation on Linzess Thank you very much for the opportunity to participate in the care of this patient Time Spent With Patient Time: Total time spent is greater than 50% in coordination of care (as documented) at patient's floor/unit and/or counseling patient:
[2025-01-07] MEDS: traZODone HCL 50 MG TABLET PO (21:14)
[2025-01-07] MEDS: ATORVASTATIN CALCIUM 10 MG TABLET PO (21:15)
[2025-01-07] MEDS: HYDROcodone/APAP 10/325 TAB PO (22:10)
[2025-01-08] VITALS (7 sets, daily range): BP systolic 103–129; BP diastolic 65–93; PULSE 80–104; RESP 12–19; TEMP 36.1–36.7; O2SAT 96–98; BMI 26.6
[2025-01-08] MEDS: PANTOPRAZOLE/NS 80MG IV PREMIX 80 MG/100 ML BAG 10 MG IV (01:45)
[2025-01-08] MEDS: SODIUM CHLORIDE 0.9% 1000 ML 1,000 ML 100 ML IV (01:48)
[2025-01-08] MEDS: HYDROcodone/APAP 10/325 TAB PO ×2 (04:10→10:33)
[2025-01-08] MEDS: SUCRALFATE SUSP 1 GM/10 ML UDC PO ×2 (05:49→12:56)
[2025-01-08] MEDS: MG HYD/AL HYD/SIME (Maalox Reg) SUSP 30 ML UDC 15 ML PO ×2 (05:49→12:56)
[2025-01-08 05:59] LABS: Basophils % (Auto) 1 % (0-2.5); Eosinophils # (Auto) 0.3 Thou/mm3 (0.0-0.5); Eosinophils % (Auto) 4 % (0-10); Hematocrit 34.6 % (41.0-53.0); Hemoglobin 11.6 g/dL (13.5-16.0); Immature Granulocytes % (Auto) 0 % (0-0); Immature Granulocytes Auto 0.03 Thou/mm3 (0.00-0.00); Lymphocytes # (Auto) 1.9 Thou/mm3 (1.0-4.8); Lymphocytes % (Auto) 24 % (10-50); Mean Corpuscular HGB Conc 33.5 g/dl (31.0-37.0); Mean Corpuscular Hemoglobin 30.6 pg (25.0-35.0); Mean Corpuscular Volume 91 fL (80-100); Monocytes # (Auto) 0.8 Thou/mm3 (0.0-0.8); Monocytes % (Auto) 10 % (0-12); Neutrophils # (Auto) 4.8 Thou/mm3 (1.8-7.7); Neutrophils % (Auto) 60 % (37-80); Nucleated Red Blood Cell % 0 /100 WBC (0); Platelet Count 304 Thou/mm3 (140-440); RDW Standard Deviation 39.4 fL (35.1-43.9); Red Blood Count 3.79 Miln/mm3 (4.50-5.90)
[2025-01-08 06:20] LABS: Anion Gap 6 (7-16); BUN/Creatinine Ratio 16 Ratio (12-20); Blood Urea Nitrogen 8 mg/dL (9-23); Calcium 8.5 mg/dL (8.3-10.6); Carbon Dioxide 29.1 mMol/L (20.0-31.0); Chloride 108 mMol/L (98-107); Creatinine (Component) 0.5 mg/dL (0.6-1.3); Estimated Creatinine Clearance 148.9 mL/min (>60); Glucose 106 mg/dL (74-106); Magnesium 1.7 mg/dL (1.6-2.6); Osmolality,Calculated 283 (275-295); Potassium 3.9 mMol/L (3.4-5.1); Sodium 143 mMol/L (136-145); eGFR > 60 See Note
[2025-01-08] MEDS: POTASSIUM CHLORIDE 10% 20 MEQ/15 ML UDC PO (08:35)
[2025-01-08] MEDS: Lisinopril 2.5 MG TABLET PO (08:35)
[2025-01-08] MEDS: BusPIRone HCL 5 MG TABLET 10 MG PO (08:35)
[2025-01-08] MEDS: PANTOPRAZOLE INJ 40 MG VIAL IV (08:54)
[2025-01-08] MEDS: METOPROLOL SUCCINATE XL 25 MG TABCR 50 MG PO (08:54)
--- NOTE | 2025-01-08 13:02 | ESDS_ITS ---
<Statement entered by Caren Chapman MD - 01/13/25 12:56> I reviewed above note and agree with findings and plans. I have also personally examined the patient with medicine team and went over assessment and plan with medical team including pharmacy grad intern and resident physician. Planned Discharge Date 01/08/25 DS: Providers Provider Date of admission: 01/05/25 22:45 Primary care physician: Madie Odell MD Admitting Provider: Greg Bennett MD Attending Provider on Admission: Caren Chapman MD Consults: 01/05/25 22:32 Consult to Gastroenterology Stat Comment: Upper GI bleed Consulting Provider: Broderick Bey Attending Provider on DC: Joy Miranda MD Discharging Provider: Joy Miranda MD DS: Diagnosis Problem List Completed Was Problem List Reviewed/Reconciled?: Yes Hospital Course Hospital Course Hospital course: Summary: The patient is a 54-year-old male with a previous medical history of hypertension, hyperlipidemia, panic disorder, cerebral palsy who was brought to the ED/06/2025 due to coffee-ground emesis that started on 01/04/2025. He reported that he had more than 10 episodes of emesis, was not able to keep the f ood down. Patient was admitted for upper GI bleeding treatment and EGD. ER Course: ED course: Blood pressure 132/81, heart rate 130, saturating well on room air, afebrile. Labs showed WBC count 16.9, hemoglobin 15, platelet count 424, INR 1.2, sodium 138, potassium 3.8, EGFR more than 60, BUN 22, creatinine 0.7, glucose 127, AST 18, ALT 11, alkaline phosphatase 149, lipase 27. UA showed 2+ protein, ketones 4+, blood 2+, bilirubin 1+, RBCs 13, negative bacteria, WBC 4. Abdomen pelvis CT was consistent with antral gastritis and active peptic disease of the duodenal bulb. 4 mm nonobstructing renal calculus. Patient received pantoprazole, 2 L of fluids, ondansetron. Hospital Course: Patient is a 54-year-old male with a past medical history of hypertension, hyperlipidemia, cerebral palsy, anxiety, and insomnia who presented to the emergency room with upper GI bleed reporting coffee-ground emesis. Patient was made n.p.o. and proceeded to have a GI consult for an upper endoscopy with Dr. Bey, GI specialist. Upper GI likely secondary to peptic ulcer disease such as H. pylori or polypharmacy, takes Flexeril and Crabtree consistently. Patient started on Protonix drip. Endoscopy performed on 01/06/2025 which found esophageal ulcers actively bleeding, gastritis, and nonbleeding gastric ulcer with clean ulcer base. 2 biopsies taken. Patient transition back to clear liquid diets and then eventually advance to low-salt diet which patient tolerated. Patient was advised advised to avoid NSAIDs, decrease Crabtree, and Meloxcam intake. Please follow with GI within 2 weeks form hospital stay. Instructions: -New medication for peptic Ulcer Pantoprazole and Sucralfate -Please continue home medication as prescribed -Please follow low salt diet for home cooking -Avoid NSAIDs such as Aspirin or Ibuprofen or Naproxen -Please follow up with your primary care provider within one week of discharge -If your symptoms worsen,please seek immediate medical attention and return to y our nearest emergency room -If you do not have a primary care provider, you may follow up at the [facility] at [address] [place] [address] [address], [place] [address], #Esophageal ulcers #Upper GI blood #GERD #Non-bleeding Gastric Ulcer #Hypertension #Hyperlipidemia # Anxiety #Insomia #Sinus Tachycardia #Cerebral palsy #Incidential finding, 4mm fat-containing hernia #Incidential finding, 4 mm lower pole non-obstructing renal calculus - The patient's plan was discussed with attending Dr. Adela Miranda MD PGY1 Internal Medicine Time Spent with Patient Time attestation: Total time spent providing and/or coordinating discharge services: at least 30 minutes of care and coordination Time spent: Greater than 30 minutes Exam Vital Signs Temp Pulse Resp BP Pulse Ox O2 Del Method O2 Flow Rate 97.2 F 96 19 129/93 H 97 Room Air 3 01/08/25 12:01/08/25 12:01/08/25 12:01/08/25 12:01/08/25 12:01/08/25 12:01/06/25 18:05 Narrative Exam General Appearance: Alert & Oriented X3, well-nourished male who is lying in bed in no acute distress HEENT: Skull symmetrical and atraumatic. Conjunctivae pin and moist. Pupils equal, round, reactive to light and accommodation (PERRL). External ear without lesion or discharge. Straight, nares patient, mucosa pink, no discharge. No thyroid nodule appreciated. No cervical lymphadenopathy. Cardio: Normal Rate and Rhythm with S1 and S2 heart sounds. No murmurs or extra heart sounds auscultated. No bruits on carotid auscultation. No peripheral edema or cyanosis. Lungs: Symmetric with good expansion. Chest and back non-tender. Breath sounds vesicular without crackles, wheezing or rhonchi Abdomen: Non-tender, Non-distended, Normal Reactive Bowel Sounds Neuro: Alert, cooperative, oriented to person, place, and time. Speech clear. CN grossly intact. Upper motor strength 5/5 and Lower motor strength 5/5. Sensation intact. Discharge Plan Plan Patient Disposition: HOME (Self Care) Patient condition on transfer: Stable Care Plan Goals: Instructions: -New medication for peptic Ulcer Pantoprazole and Sucralfate -Please continue home medication as prescribed -Please follow low salt diet for home cooking -Avoid NSAIDs such as Aspirin or Ibuprofen or Naproxen -Please follow up with your primary care provider within one week of discharge -If your symptoms worsen,please seek immediate medical attention and return to your nearest emergency room -If you do not have a primary care provider, you [facility] [address], [place] [address], Prescriptions/Referrals Prescriptions/Med Rec: New sucralfate 100 mg/mL Suspension 1 g PO QID 14 Days Qty: 560 0RF pantoprazole [Protonix] 40 mg granules for susp in packet 40 mg PO BID 14 Days Qty: 30 0RF Continued cyclobenzaprine 10 mg tablet Patient Comments: TAKE ONE TABLET BY MOUTH AT BEDTIME NEEDED FOR MUSCLE SPASMS sennosides [Nilsa-emilee] 8.6 mg tablet 8.6 mg PO DAILY Patient Comments: TAKE ONE TABLET BY MOUTH EVERY DAY lorazepam 0.5 mg tablet 0.5 mg PO DAILY PRN (Reason: anxiety) Patient Comments: TAKE ONE TABLET BY MOUTH EVERY DAY NEEDED FOR ANXIETY buspirone 10 mg tablet 20 mg PO BID PRN (Reason: anxiety) Patient Comments: TAKE TWO TABLETS BY MOUTH TWICE DAILY NEEDED FOR ANXIETY omeprazole 20 mg capsule,delayed release(DR/EC) Patient Comments: TAKE ONE CAPSULE BY MOUTH AT BEDTIME BEFORE MEALS HEARTBURN OR FOR GASTRITIS fluticasone propion-salmeterol 100-50 mcg/dose blister with device INHALATION Patient Comments: INHALE 1 PUFF BY MOUTH TWICE DAILY RINSE MOUTH AFTER USE docusate sodium 250 mg capsule 250 mg PO BID Patient Comments: TAKE ONE CAPSULE BY MOUTH TWICE DAILY FOR CONSTIPATION atorvastatin 10 mg tablet 10 mg PO .QHS Patient Comments: TAKE ONE TABLET BY MOUTH AT BEDTIME FOR CHOLESTEROL sertraline 100 mg tablet 100 mg PO Q24H Patient Comments: TAKE ONE TABLET BY MOUTH EVERY DAY trazodone 100 mg tablet 100 mg PO HS Patient Comments: TAKE ONE TABLET BY MOUTH AT BEDTIME FOR SLEEP pantoprazole 40 mg tablet,delayed release (DR/EC) 40 mg PO DAILY Patient Comments: TAKE ONE TABLET BY MOUTH EVERY DAY HEARTBURN FOR GASTRITIS albuterol sulfate 90 mcg/actuation HFA aerosol inhaler 2 puff INHALATION .Q4-6HRS PRN (Reason: shortness of breath) Patient Comments: INHALE TWO PUFFS BY MOUTH EVERY 4 TO 6 HOURS NEEDED FOR BREATHING lisinopril 2.5 mg tablet 2.5 mg PO DAILY Patient Comments: TAKE ONE TABLET BY MOUTH EVERY DAY FOR BLOOD PRESSURE Linzess 72 mcg capsule 72 mcg PO DAILY Patient Comments: TAKE ONE CAPSULE BY MOUTH DAILY 30 MINUTES BEFORE FIRST meal Rx Instructions: 30 MINUTES BEFORE FIRST MEAL zolpidem 10 mg tablet 10 mg PO .QHS PRN (Reason: sleep) Patient Comments: TAKE 1/2 TO 1 TABLET BY MOUTH AT BEDTIME NEEDED FOR SLEEP metoprolol succinate [Toprol XL] 50 mg tablet extended release 24 hr 50 mg PO QDAY hydrocodone-acetaminophen 10-325 mg tablet 1 tab PO Q6HR MDD 1 tab PRN (Reason: pain) Discontinued lorazepam [Ativan] 1 mg tablet 1 mg PO BID PRN (Reason: anxiety) Qty: 4 0RF meclizine 25 mg tablet 25 mg PO .EVERY 6-8 HRS PRN (Reason: dizziness) Patient Comments: TAKE ONE TABLET BY MOUTH EVERY 6 TO 8 HOURS FOR DIZZINESS meloxicam 15 mg tablet 15 mg PO DAILY Patient Comments: TAKE ONE TABLET BY MOUTH EVERY DAY WITH FOOD metoprolol succinate 25 mg tablet extended release 24 hr PO Patient Comments: TAKE ONE TABLET BY MOUTH EVERY DAY FOR BLOOD PRESSURE Referrals: Madie Odell MD [Primary Care Provider] - Broderick Bey MD [Physician] - Patient/Caregiver Discharge Instructions Print Language: Estonian Stand Alone Forms: [employer]ora Award Info., Patient Portal Info Letter Discharge Order Discharge Orders: Discharge (Routine); Ordered 01/08/25 Ordered By: Joy Miranda Quality Discharge Quality Measures VTE prophylaxis
--- NOTE | 2025-01-08 13:26 | PC.NURSE ---
Pt walked with [facility] [employer] using front wheel walker, pt walked 100 ft with O2 Sats staying >92%. Pt states he has walker at home. Pt is not in need of O2 at home. Dr. eBy was notified and he stated that pt could leave today.
--- NOTE | 2025-01-08 13:47 | PD.IMPROG ---
Documentation for date of: 01/08/25 Subjective Subjective Interval history: Hemoglobin hematocrit 11.6 and 34.6 Exam Vital Signs Temp Pulse Resp BP Pulse Ox O2 Del Method O2 Flow Rate 97.2 F 96 19 129/93 H 97 Room Air 3 01/08/25 12:00 01/08/25 12:00 01/08/25 12:00 01/08/25 12:00 01/08/25 12:00 01/08/25 12:00 01/06/25 18:05 Objective Labs 01/08/25 05:16 01/08/25 05:16 Labs: Laboratory Results - last 24 hr 01/08/25 05:16 WBC 8.0 RBC 3.79 L Hgb 11.6 L Hct 34.6 L MCV 91 MCH 30.6 MCHC 33.5 RDW Std Deviation 39.4 Plt Count 304 Neut % (Auto) 60 Lymph % (Auto) 24 [place] % (Auto) 10 Eos % (Auto) 4 Baso % (Auto) 1 Neut # (Auto) 4.8 Lymph # (Auto) 1.9 [place] # (Auto) 0.8 Eos # (Auto) 0.3 Baso # (Auto) 0.0 Immature Gran # (Auto) 0.03 H Absolute Nucleated RBC 0.00 Immature Gran % 0 Nucleated RBC % 0 Sodium 143 Potassium 3.9 Chloride 108 H Carbon Dioxide 29.1 Anion Gap 6 L BUN 8 L Creatinine 0.5 L Estim Creat Clear Calc 148.9 eGFR > 60 BUN/Creatinine Ratio 16 Glucose 106 Calculated Osmolality 283 Calcium 8.5 Phosphorus 3.0 Magnesium 1.7 Impressions Impression: Esophageal ulcers continue current management gastric ulcer Okay to discharge patient home To be followed by the PCP Assessment & Plan A&P Narrative # Coffee-ground hematemesis of uncertain etiology Plan Serial CBC IV Protonix consent obtained in the room with his history of present for fiberoptic esophagogastroduodenoscopy with possible therapeutic intervention possible biopsy under intravenous moderate sedation Other medical problems include Anxiety neurosis Depression Bronchial asthma/COPD Chronic constipation on Linzess Thank you very much for the opportunity to participate in the care of this patient Time Spent With Patient Time: Total time spent is greater than 50% in coordination of care (as documented) at patient's floor/unit and/or counseling patient:
== END 2025-01-08 14:24 | disposition home or self-care (01) | DRG 381 ==
LOC: SERX 20:59 → SERHOLD 23:24 → S2NX 01-06 02:36
PROVIDERS: Nurse Practitioner Primary Care; Specialist; Admitting Provider Internal Medicine; Emergency Provider Emergency Medicine; PCP Internal Medicine; Visit Provider Internal Medicine
PROC: 0DB48ZX Excision of Esophagogastric Junction, Via Natural or Artificial Opening Endoscopic, Diagnostic (ICD-10-PCS; CPT 43239; principal; 2025-01-06 17:45)
DX: K22.11 Ulcer of esophagus with bleeding (principal); I47.20 Ventricular tachycardia, unspecified; G89.29 Other chronic pain; K29.71 Gastritis, unspecified, with bleeding; G80.9 Cerebral palsy, unspecified; I10 Essential (primary) hypertension; E78.5 Hyperlipidemia, unspecified; K21.9 Gastro-esophageal reflux disease without esophagitis; F41.0 Panic disorder [episodic paroxysmal anxiety]; F41.9 Anxiety disorder, unspecified; D72.829 Elevated white blood cell count, unspecified; F41.1 Generalized anxiety disorder; F32.A Depression, unspecified; J44.89 Other specified chronic obstructive pulmonary disease; K59.09 Other constipation; N20.0 Calculus of kidney; Z88.5 Allergy status to narcotic agent; Z79.899 Other long term (current) drug therapy
CPT/HCPCS: 36415; 74177; 80048; 80053; 81001; 83690; 83735; 84100; 84484; 85014; 85018; 85025; 85610; 85730; 86850; 86900; 86901; 93005; 96360; 96361; 96374; 96375; 99285; A4649; J1200; J2250; J2405; J2470; J3010; J3490; J7030; J7120; Q9967; A9270

== ENCOUNTER → 2025-02-07 | Outpatient (CLI) | payer MEDICARE, MEDICAID, SELFPAY ==
[2025-02-07 16:41] LABS: Basophils % (Auto) 0 % (0-2.5); Eosinophils % (Auto) 0 % (0-10); Hematocrit 39.9 % (41.0-53.0); Hemoglobin 13.3 g/dL (13.5-16.0); Immature Granulocytes % (Auto) 0 % (0-0); Immature Granulocytes Auto 0.03 Thou/mm3 (0.00-0.00); Lymphocytes # (Auto) 1.9 Thou/mm3 (1.0-4.8); Lymphocytes % (Auto) 17 % (10-50); Mean Corpuscular HGB Conc 33.3 g/dl (31.0-37.0); Mean Corpuscular Hemoglobin 29.2 pg (25.0-35.0); Mean Corpuscular Volume 88 fL (80-100); Monocytes % (Auto) 9 % (0-12); Neutrophils # (Auto) 8.4 Thou/mm3 (1.8-7.7); Neutrophils % (Auto) 74 % (37-80); Nucleated Red Blood Cell % 0 /100 WBC (0); Platelet Count 414 Thou/mm3 (140-440); RDW Standard Deviation 38.9 fL (35.1-43.9); Red Blood Count 4.56 Miln/mm3 (4.50-5.90); White Blood Count 11.3 Thou/mm3 (3.8-10.6)
[2025-02-07 17:01] LABS: Alanine Aminotransferase 17 U/L (10-49); Albumin, Serum 4.7 gm/dL (3.5-5.0); Albumin/Globulin Ratio 1.6 (1.2-2.2); Alkaline Phosphatase 155 U/L (46-116); Anion Gap 13 (7-16); Aspartate Amino Transferase 19 U/L (0-34); BUN/Creatinine Ratio 36 Ratio (12-20); Bilirubin,Total 0.6 mg/dL (0.3-1.2); Blood Urea Nitrogen 25 mg/dL (9-23); Calcium 9.3 mg/dL (8.3-10.6); Calcium (Corrected) 9.3 mg/dL (8.5-10.1); Chloride 97 mMol/L (98-107); Creatinine (Component) 0.7 mg/dL (0.6-1.3); Glucose 115 mg/dL (74-106); Lipase 40 U/L (12-53); Osmolality,Calculated 281 (275-295); Potassium 4.1 mMol/L (3.4-5.1); Sodium 138 mMol/L (136-145); Total Protein 7.7 gm/dL (5.7-8.2); eGFR > 60 See Note
== END | disposition home or self-care (01) ==
LOC: COPL 14:52
PROVIDERS: PCP Internal Medicine
DX: R10.84 Generalized abdominal pain (principal)
CPT/HCPCS: 36415; 80053; 83690; 85025